=== PATIENT | female | born 1975 | race Caucasian/White ===

== ENCOUNTER 2017-06-08 16:13 | Emergency (ER) | payer OTHER ==
[2017-06-08] MEDS ORDERED: ASPIRIN 81 MG TABLET, CHEWABLE PO ONE (17:05)
[2017-06-08] MEDS: NITROGLYCERIN 0.4 MG/TAB 25 TAB/BOTTLE SL PRN ×2 (17:20→17:27)
--- NOTE | 2017-06-08 17:26 | ER Document Report ---
ED Medical Screen (RME) - General TRAVEL OUTSIDE OF THE [place] IN LAST 30 DAYS: No <ODESSACAMILOANDREA - Last Filed: 06/08/17 17:06> <LYLAIRAGEOVANNY RAPHAEL - Last Filed: 06/08/17 18:24> - General Chief Complaint: Chest Pain Stated Complaint: CHEST PAIN Time Seen by Provider: 06/08/17 17:00 Notes: Patient is a 41 year old female presenting to the emergency department for chest pain, arm tingling, neck and jaw pain, and nausea. Patient states her pain started in her chest and then radiated into her left arm, neck and jaw. Patient states she also has a frontal headache. Patient states it hurts to lay down and she feels like she is breathing heavy when she lays down. Patient states it feels better to lean forward. Patient complains of nausea and cold sweats. Patient denies any vomiting or diarrhea. Patient states that she had a previous MD when she was 8 years old which occurred during a surgery; patient states this occurred due to an overdose of medication. 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 Patient's last checkup was October 29, 2016. Patient had a thyroidectomy in July. Patient is a former smoker. ( ANDREA PAZ) - Related Data Allergies/Adverse Reactions: adhesive tape [Adhesive Tape] Allergy (Severe, Verified 06/08/17 16:29) latex [Latex] Allergy (Verified 06/08/17 16:29) Anaphylaxis Penicillins Allergy (Verified 06/08/17 16:29) Anaphylaxis Past Medical History - Social History Chew tobacco use (# tins/day): No Frequency of alcohol use: Rare Drug Abuse: None - Past Medical History Cardiac Medical History: Reports: Hx Heart Attack Denies: Hx Coronary Artery Disease, Hx Hypertension Pulmonary Medical History: Reports: Hx Asthma - seasonal, Hx Pneumonia - Not hospitalized Denies: Hx Bronchitis, Hx COPD, Hx Tuberculosis Neurological Medical History: Denies: Hx Cerebrovascular Accident, Hx Seizures Endocrine Medical History: Reports: Hx Hypothyroidism - hashimotos Renal/ Medical History: Reports: Hx Kidney Stones - polycystic kidney. Denies : Hx Peritoneal Dialysis Musculoskeltal Medical History: Reports Hx Arthritis - RA Past Surgical History: Reports: Hx Hysterectomy, Hx Thyroid Surgery. Denies: Hx Pacemaker - Immunizations Hx Diphtheria, Pertussis, Tetanus Vaccination: Yes - 2013 History of Influenza Vaccine for 05/2017 - 10/2017 Season: No <ANDREA PAZ - Last Filed: 06/08/17 17:06> Physical Exam <ANDREA PAZ - Last Filed: 06/08/17 17:06> <GEOVANNY PANG - Last Filed: 06/08/17 18:24> - Vital signs Vitals: Temp Pulse Resp BP Pulse Ox 99.0 F 109 H 20 126/86 H 96 06/08/17 16:30 06/08/17 16:30 06/08/17 16:30 06/08/17 16:30 06/08/17 16:30 - Notes Notes: GENERAL: Alert, interacts well. No acute distress. LUNGS: Clear to auscultation bilaterally, no wheezes, rales, or rhonchi. No respiratory distress. Reproducible tenderness to palpation over the anterior chest wall. HEART: Regular rate and rhythm. No murmurs, gallops, or rubs. ABDOMEN: Soft, non-tender. Non-distended. Bowel sounds present in all 4 quadrants. (ANDREA PAZ) Course - Laboratory Result Diagrams: 06/08/17 17:15 06/08/17 17:15 <GEOVANNY APNG - Last Filed: 06/08/17 18:24> - Vital Signs Vital signs: Temp Pulse Resp BP Pulse Ox 99.0 F 109 H 20 126/86 H 96 06/08/17 16:30 06/08/17 16:30 06/08/17 16:30 06/08/17 16:30 06/08/17 16:30 - Laboratory Laboratory results interpreted by me: 06/08/17 06/08/17 17:15 17:15 WBC 10.7 H RDW 14.1 H Carbon Dioxide 32 H Calcium 10.5 H Scribe Documentation - Scribe Written by Scroswaldoe:: Tonny Baeza, 06/08/2017 [id number] acting as scribe for :: Bogdan <ANDREA PAZ - Last Filed: 06/08/17 17:06>
[2017-06-08 17:36] LABS: ABSOLUTE BASOPHILS # (AUTO) 0.1 10^3/uL (0.0-0.2); ABSOLUTE EOSINOPHILS # (AUTO) 0.5 10^3/uL (0.0-0.6); ABSOLUTE LYMPHOCYTES (AUTO) 2.3 10^3/uL (0.5-4.7); ABSOLUTE NEUT (AUTO) 6.8 10^3/uL (1.7-8.2); BASOPHILS % (AUTO) 0.7 % (0-2); EOSINOPHILS % (AUTO) 4.6 % (0-6); HEMATOCRIT 43.7 % (36.0-47.0); HGB HCT DIFFERENCE 1.3; LYMPHOCYTES % (AUTO) 21.9 % (13-45); MEAN CORPUSCULAR HEMOGLOBIN 29.3 pg (27.0-33.4); MEAN CORPUSCULAR HGB CONC 34.3 g/dL (32.0-36.0); MEAN CORPUSCULAR VOLUME 86 fl (80-97); MONOCYTES % (AUTO) 9.1 % (3-13); RED CELL DISTRIBUTION WIDTH 14.1 % (11.5-14.0); SEGMENTED NEUTROPHILS % (AUTO) 63.7 % (42-78); WHITE BLOOD COUNT 10.7 10^3/uL (4.0-10.5)
[2017-06-08 17:54] LABS: ALANINE AMINOTRANSFERASE 51 U/L (9-52); ALBUMIN 4.6 g/dL (3.5-5.0); ALKALINE PHOSPHATASE 91 U/L (38-126); ANION GAP 12 (5-19); ASPARTATE AMINO TRANSFERASE 32 U/L (14-36); BILIRUBIN,DIRECT 0.4 mg/dL (0.0-0.4); BILIRUBIN,TOTAL 0.5 mg/dL (0.2-1.3); BLOOD UREA NITROGEN 13 mg/dL (7-20); CALCIUM 10.5 mg/dL (8.4-10.2); CARBON DIOXIDE 32 mmol/L (22-30); CHLORIDE 98 mmol/L (98-107); CREATINE KINASE 93 U/L (30-135); CREATININE RESULT 0.83 mg/dL (0.52-1.25); GLUCOSE 89 mg/dL (75-110); POTASSIUM 3.9 mmol/L (3.6-5.0); SODIUM 142.1 mmol/L (137-145); TOTAL PROTEIN 7.8 g/dL (6.3-8.2)
--- NOTE | 2017-06-08 17:55 | RADIOLOGY REPORT (SQ) ---
EXAM DESCRIPTION: CHEST SINGLE VIEW COMPLETED DATE/TIME: 06/08/2017 5:47 pm REASON FOR STUDY: pleuritic CP, worse also with movement COMPARISON: 01/15/2014 EXAM PARAMETERS: NUMBER OF VIEWS: One view. TECHNIQUE: Single frontal radiographic view of the chest acquired. RADIATION DOSE: NA LIMITATIONS: None. FINDINGS: LUNGS AND PLEURA: No opacities, masses or pneumothorax. No pleural effusion. MEDIASTINUM AND HILAR STRUCTURES: No masses. Contour normal. HEART AND VASCULAR STRUCTURES: Heart normal in size. Normal vasculature. BONES: No acute findings. HARDWARE: None in the chest. OTHER: No other significant finding. IMPRESSION: NO ACUTE RADIOGRAPHIC FINDING IN THE CHEST. TECHNICAL DOCUMENTATION: JOB ID: [id number]
[2017-06-08 18:09] LABS: TROPONIN I < 0.012 ng/mL
[2017-06-08] MEDS ORDERED: KETOROLAC TROMETHAMINE INJ/PF 30 MG/1 ML SDV IV ONE (18:38)
[2017-06-08] MEDS ORDERED: PROCHLORPERAZINE EDISYLATE INJ 10 MG/2 ML VIAL IV ONE (18:38)
--- NOTE | 2017-06-08 19:29 | ER Document Report ---
ED General - General Chief Complaint: Chest Pain Stated Complaint: CHEST PAIN Time Seen by Provider: 06/08/17 17:00 Notes: Patient is a 41-year-old female with a past medical history of a recent thyroidectomy, a myocardial infarction is a 8-year-old secondary to an operative medication administration but no known history of coronary artery disease who presents with a aching right-sided chest pressure that started at approximately 1:30 PM today. Since that time the pain has been constant. Denies any radiation to the arms, jaw or back. Denies any associated vomiting, diaphoresis or shortness of breath. She notes shortly after the onset of the pain she did develop a mild headache. Describes this as similar to prior tension headaches that she has had. The headache was gradual in onset and got progressively worse after starting. She denies any associated weakness, numbness, altered mental status. Denies any history of similar symptoms in the past. She has no other cardiac history. No history of DVT or pulmonary embolus. She does have a history of sinus tachycardia at baseline with a resting heart rate between 110-115. TRAVEL OUTSIDE OF THE [place] IN LAST 30 DAYS: No - Related Data Allergies/Adverse Reactions: adhesive tape [Adhesive Tape] Allergy (Severe, Verified 06/08/17 16:29) latex [Latex] Allergy (Verified 06/08/17 16:29) Anaphylaxis Penicillins Allergy (Verified 06/08/17 16:29) Anaphylaxis Past Medical History - General Information source: Patient - Social History Smoking Status: Former Smoker Chew tobacco use (# tins/day): No Frequency of alcohol use: Rare Drug Abuse: None Lives with: Spouse/Significant other Family History: CAD - father and mother, DM - mother, Hyperlipidemia, Hypertension - Past Medical History Cardiac Medical History: Reports: Hx Heart Attack Denies: Hx Coronary Artery Disease, Hx Hypertension Pulmonary Medical History: Reports: Hx Asthma - seasonal, Hx Pneumonia - Not hospitalized Denies: Hx Bronchitis, Hx COPD, Hx Tuberculosis Neurological Medical History: Denies: Hx Cerebrovascular Accident, Hx Seizures Endocrine Medical History: Reports: Hx Hypothyroidism - hashimotos Renal/ Medical History: Reports: Hx Kidney Stones - polycystic kidney. Denies : Hx Peritoneal Dialysis Musculoskeltal Medical History: Reports Hx Arthritis - RA Past Surgical History: Reports: Hx Hysterectomy, Hx Thyroid Surgery. Denies: Hx Pacemaker - Immunizations Hx Diphtheria, Pertussis, Tetanus Vaccination: Yes - 2013 Hx Pneumococcal Vaccination: 06/19/11 Review of Systems - Review of Systems Notes: Constitutional: Negative for fever. HENT: Negative for sore throat. Eyes: Negative for visual changes. Cardiovascular: Positive for chest pain. Respiratory: Negative for shortness of breath. Gastrointestinal: Negative for abdominal pain, vomiting or diarrhea. Genitourinary: Negative for dysuria. Musculoskeletal: Negative for back pain. Skin: Negative for rash. Neurological: Positive for headache 10 point ROS negative except as marked above and in HPI. Physical Exam - Vital signs Vitals: Temp Pulse Resp BP Pulse Ox 99.0 F 109 H 20 126/86 H 96 06/08/17 16:30 06/08/17 16:30 06/08/17 16:30 06/08/17 16:30 06/08/17 16:30 Interpretation: Tachycardic Notes: PHYSICAL EXAMINATION: GENERAL: Well-appearing, well-nourished and in no acute distress. HEAD: Atraumatic, normocephalic. EYES: Pupils equal round and reactive to light, extraocular movements intact, sclera anicteric, conjunctiva are normal. ENT: nares patent, oropharynx clear without exudates. Moist mucous membranes. NECK: Normal range of motion, supple without lymphadenopathy LUNGS: Breath sounds clear to auscultation bilaterally and equal. No wheezes rales or rhonchi. HEART: Regular tachycardia without murmurs ABDOMEN: Soft, nontender, normoactive bowel sounds. No guarding, no rebound. No masses appreciated. EXTREMITIES: Normal range of motion, no pitting or edema. No cyanosis. NEUROLOGICAL: No focal neurological deficits. Moves all extremities spontaneously and on command. PSYCH: Normal mood, normal affect. SKIN: Warm, Dry, normal turgor, no rashes or lesions noted. Course - Re-evaluation Re-evalutation: 06/08/17 19:29 Presentation of chest pain in an otherwise well appearing patient. Low clinical suspicion for ACS given clinical history, exam, EKG without ST elevations or depressions, and negative initial troponin. HEART score less than or equal to 3. PE also seems unlikely given clinical history, absence of any complaint of shortness of breath. Patient was mildly tachycardic at time of presentation although she does have a history of baseline tachycardia based on prior visits. CXR without evidence of pneumothorax or pneumonia. No widened mediastinum. Aortic dissection also seems unlikely given history, symmetric pulses, CXR, and vitals. I do not suspect a carotid artery dissection or subarachnoid hemorrhage as etiology of her chest pain with associated mild headache. Her headache itself appears to be likely a tension headache being over the bifrontal areas, mild in nature gradual in onset and progressively worse since that time. I do not believe any acute imaging of the head is indicated. HEART Score: History:0 EC Age:0 Risk Factors:0 Troponin:0 Total: 0 06/08/17 21:28 Second troponin remains normal. Patient remains without any chest pain. Chest pain in a patient without evidence of cardiac or other serious etiology on workup today. I discussed with patient that, based on their age, risk factors and emergency department testing today, the likelihood that their symptoms are related to a heart attack is very low (estimated risk of heart attack or over the next 30 days of less than 1%). The patient demonstrates decision making capacity and has verbalized an understanding of these risks to me. Based on this, the patient has chosen to follow-up as an outpatient. Usual chest pain return precautions reviewed. The patient states understanding and agreement with this plan. - Vital Signs Vital signs: Temp Pulse Resp BP Pulse Ox 99.0 F 109 H 20 102/75 95 06/08/17 16:30 06/08/17 16:30 06/08/17 21:39 06/08/17 21:39 06/08/17 21:39 - Laboratory Result Diagrams: 06/08/17 17:15 06/08/17 17:15 Laboratory results interpreted by me: 06/08/17 06/08/17 17:15 17:15 WBC 10.7 H RDW 14.1 H Carbon Dioxide 32 H Calcium 10.5 H - Diagnostic Test Radiology reviewed: Image reviewed, Reports reviewed Radiology results interpreted by me: 06/08/17 21:30 Chest x-ray: No acute infiltrate or pneumothorax - EKG Interpretation by Me Additional EKG results interpreted by me: 06/08/17 21:39 Sinus tachycardia. Rate 105. No ST elevations or depressions. QTC is 450. Discharge - Discharge Clinical Impression: Chest pain Qualifiers: Chest pain type: unspecified Qualified Code(s): R07.9 - Chest pain, unspecified Headache Qualifiers: Headache type: unspecified Headache chronicity pattern: acute headache Intractability: not intractable Qualified Code(s): R51 - Headache Condition: Good Disposition: HOME, SELF-CARE Additional Instructions: You were seen today for chest pain. The exact cause of your pain is unclear. However, based on your cardiac enzyme testing, chest x-ray, and EKG it does not appear that it is from an immediately life-threatening cause at this time. Although your testing here is normal is critical that you follow-up with your primary care physician for continued evaluation of this chest pain and possible stress testing. I recommended you see your physician within the next 24-48 hours to be evaluated for consideration of a stress test. Please return to emergency department immediately if you have worsening of your chest pain, shortness of breath, vomiting, become unable to exert yourself due to pain or difficulty breathing, you pass out, or have any pain that radiates into your arms, jaw, or back. Please also return if you have any additional symptoms that are concerning to you.
[2017-06-08] MEDS ORDERED: NORMAL SALINE 1000 ML 1,000 ML IV ONE (19:31)
[2017-06-08] MEDS ORDERED: MORPHINE SULFATE 10 MG/ML INJ IV PRN (19:32)
[2017-06-08 22:05] VITALS: BP 102/75
--- NOTE | 2017-06-09 09:20 | EKG REPORT ---
SEVERITY:- OTHERWISE NORMAL ECG - SINUS TACHYCARDIA : Confirmed by: Kaitlyn Hanson MD 09-Jun-2017 09:19:19
== END 2017-06-08 22:06 | disposition home or self-care (01) ==
LOC: ER 16:13
DX: R07.9 Chest pain, unspecified (principal); R51 Headache; I25.2 Old myocardial infarction; Z87.891 Personal history of nicotine dependence
CPT/HCPCS: 93005; 99285; 96361; 96374; 96375; 36415; 82553; 82550; 85025; 80053; 84484; 71010; 93010; J1885; J0780; J7030

== ENCOUNTER 2018-05-24 22:28 | Emergency (ER) | payer OTHER ==
[2018-05-24] MEDS ORDERED: RINGERS SOLUTION,LACTATED 1,000 ML IV ONE (23:01)
[2018-05-24 23:38] LABS: ABSOLUTE BASOPHILS # (AUTO) 0.1 10^3/uL (0.0-0.2); ABSOLUTE EOSINOPHILS # (AUTO) 0.3 10^3/uL (0.0-0.6); ABSOLUTE LYMPHOCYTES (AUTO) 2.5 10^3/uL (0.5-4.7); ABSOLUTE MONOCYTES (AUTO) 1.2 10^3/uL (0.1-1.4); ABSOLUTE NEUT (AUTO) 11.7 10^3/uL (1.7-8.2); BASOPHILS % (AUTO) 0.3 % (0-2); EOSINOPHILS % (AUTO) 1.6 % (0-6); HEMATOCRIT 47.8 % (36.0-47.0); LYMPHOCYTES % (AUTO) 15.9 % (13-45); MEAN CORPUSCULAR HEMOGLOBIN 28.2 pg (27.0-33.4); MEAN CORPUSCULAR HGB CONC 33.4 g/dL (32.0-36.0); MEAN CORPUSCULAR VOLUME 85 fl (80-97); MONOCYTES % (AUTO) 7.4 % (3-13); PLATELET COUNT 414 10^3/uL (150-450); RED BLOOD COUNT 5.66 10^6/uL (3.72-5.28); RED CELL DISTRIBUTION WIDTH 14.1 % (11.5-14.0); SEGMENTED NEUTROPHILS % (AUTO) 74.8 % (42-78); TOTAL CELLS COUNTED % (AUTO) 100 %; WHITE BLOOD COUNT 15.6 10^3/uL (4.0-10.5)
--- NOTE | 2018-05-24 23:44 | ER Document Report ---
ED General - General Chief Complaint: Headache Stated Complaint: WEAKNESS Time Seen by Provider: 05/24/18 22:45 Notes: Patient is a 42-year-old female with a past medical history of baseline tachycardia, hypocalcemia, hypothyroidism status post thyroidectomy, who presents after having a possible seizure. The patient was apparently using the restroom, her could hear a repetitious knocking sound the bathroom door. He could not get in as the patient was apparently slumped against the door. This lasted for approximately 1 minute. The patient apparently was fully quite confused and altered for several minutes thereafter before returning to her baseline. The patient has had one prior seizure in the past in 2013 with a negative workup thereafter. She does not take any form of antiepileptics. She presents as she is quite concerned that her symptoms could be related to hypocalcemia. She recently was treated with ceftriaxone for a pyelonephritis but states that she no longer has any of those symptoms and does not feel that that is involved in her presentation today. She notes that her primary care doctor did labs 2 days ago that confirmed that the urinary tract has cleared. She denies fever or constitutional symptoms. Her main current complaint is of some mild, throbbing, global headache that is not improved or worsened by anything. Similar to headaches she has had in the past. She denies any focal weakness, numbness or confusion. She does admit to some lightheadedness and feeling dehydrated. TRAVEL OUTSIDE OF THE [place] IN LAST 30 DAYS: No - Related Data Allergies/Adverse Reactions: adhesive tape [Adhesive Tape] Allergy (Severe, Verified 06/08/17 16:29) latex [Latex] Allergy (Verified 06/08/17 16:29) Anaphylaxis Penicillins Allergy (Verified 06/08/17 16:29) Anaphylaxis Past Medical History - General Information source: Patient - Social History Smoking Status: Never Smoker Frequency of alcohol use: None Drug Abuse: None Lives with: Spouse/Significant other Family History: CAD - father and mother, DM - mother, Hyperlipidemia, Hypertension - Past Medical History Cardiac Medical History: Reports: Hx Heart Attack Denies: Hx Coronary Artery Disease, Hx Hypertension Pulmonary Medical History: Reports: Hx Asthma - seasonal, Hx Pneumonia - Not hospitalized Denies: Hx Bronchitis, Hx COPD, Hx Tuberculosis Neurological Medical History: Denies: Hx Cerebrovascular Accident, Hx Seizures Endocrine Medical History: Reports: Hx Hypothyroidism - hashimotos Renal/ Medical History: Reports: Hx Kidney Stones - polycystic kidney. Denies : Hx Peritoneal Dialysis Musculoskeletal Medical History: Reports Hx Arthritis - RA Past Surgical History: Reports: Hx Hysterectomy, Hx Thyroid Surgery. Denies: Hx Pacemaker - Immunizations Hx Diphtheria, Pertussis, Tetanus Vaccination: Yes - 2013 Hx Pneumococcal Vaccination: 06/19/11 Review of Systems - Review of Systems Notes: Constitutional: Negative for fever. HENT: Negative for sore throat. Eyes: Negative for visual changes. Cardiovascular: Negative for chest pain. Respiratory: Negative for shortness of breath. Gastrointestinal: Negative for abdominal pain, vomiting or diarrhea. Genitourinary: Negative for dysuria. Musculoskeletal: Negative for back pain. Skin: Negative for rash. Neurological: Positive for seizure, headache 10 point ROS negative except as marked above and in HPI. Physical Exam - Vital signs Vitals: Temp Pulse Resp BP Pulse Ox 98.7 F 129 H 12 81/32 L 95 05/24/18 22:35 05/24/18 22:35 05/24/18 22:35 05/24/18 22:35 05/24/18 22:35 Interpretation: Hypotensive, Tachycardic Notes: PHYSICAL EXAMINATION: GENERAL: Well-appearing, well-nourished and in no acute distress. HEAD: Atraumatic, normocephalic. EYES: Pupils equal round and reactive to light, extraocular movements intact, sclera anicteric, conjunctiva are normal. ENT: nares patent, oropharynx clear without exudates. Dry mucous membranes. NECK: Normal range of motion, supple without lymphadenopathy LUNGS: Breath sounds clear to auscultation bilaterally and equal. No wheezes rales or rhonchi. HEART: Regular tachycardia without murmurs ABDOMEN: Soft, nontender, normoactive bowel sounds. No guarding, no rebound. No masses appreciated. EXTREMITIES: Normal range of motion, no pitting or edema. No cyanosis. NEUROLOGICAL: Face symmetric. Tongue protrudes midline. Extraocular motions intact. Pupils are 2 mm and equally reactive. Normal speech, normal gait. 5 out of 5 strength in both the distal and proximal upper and lower extremities bilaterally. Sensation is grossly intact throughout. Finger to nose testing normal. Pronator drift normal. PSYCH: Normal mood, normal affect. SKIN: Warm, Dry, normal turgor, no rashes or lesions noted. Course - Re-evaluation Re-evalutation: 05/24/18 23:45 Patient presents complaining of a possible seizure at home. Patient apparently generalized tonic-clonic activity followed by a several minute postictal phase. Patient has had one seizure in the remote past specifically in 2013 with a negative workup thereafter does not take antiepileptics. Patient is tachycardic at time of presentation was very clear to state that her normal heart rate is between 117 and 130 at baseline and that there is nothing new or different about this today. She has no focal neurologic deficits on examination. 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 Will obtain ionized calcium, labs, provide IV fluids, obtain a CT given questionable seizure and reassess 05/25/18 01:50 Patient is awake, alert, repeat neuro exam unremarkable. Labs show mild prerenal azotemia, consistent with dehydration. Nonspecific leukocytosis likely associated to the recent seizure. No significant hypocalcemia. Patient' s blood pressure has improved currently 102 on 65. She reports that her normal blood pressure typically runs around this range. She has tolerated oral intake without difficulty. I have emphasized the need for close outpatient neurology follow-up as well as primary care follow-up. At this time will discharge with return precautions and follow-up recommendations. Verbal discharge instructions given a the bedside and opportunity for questions given. Medication warnings reviewed. Patient is in agreement with this plan and has verbalized understanding of return precautions and the need for primary care follow-up in the next 24-72 hours. - Vital Signs Vital signs: Temp Pulse Resp BP Pulse Ox 98.3 F 129 H 28 H 102/65 96 05/25/18 01:16 05/24/18 22:35 05/25/18 01:46 05/25/18 01:46 05/25/18 01:46 - Laboratory Result Diagrams: 05/24/18 23:20 05/24/18 23:20 Laboratory results interpreted by me: 05/24/18 05/24/18 05/24/18 23:20 23:20 23:20 WBC 15.6 H RBC 5.66 H Hgb 16.0 H Hct 47.8 H RDW 14.1 H Absolute Neutrophils 11.7 H Chloride 97 L BUN 21 H Creatinine 1.65 H Est GFR ( Amer) 41 L Est GFR (Non-Af Amer) 34 L Glucose 126 H Ionized Calcium Aubrey 1.13 L AST 39 H ALT 54 H Total Protein 8.4 H - Diagnostic Test Radiology reviewed: Image reviewed, Reports reviewed Radiology results interpreted by me: 05/25/18 01:51 CT head: No acute intracranial bleed or mass - EKG Interpretation by Me Additional EKG results interpreted by me: 05/25/18 01:52 Sinus tachycardia. Rate 110. No ST elevations or depressions. QTC is 477. Discharge - Discharge Clinical Impression: Seizure, Acute kidney injury, Dehydration Condition: Good Disposition: HOME, SELF-CARE Additional Instructions: Today you had a seizure. It is very important that you do not engage in any activities that could result in severe injury should you have a seizure. Specifically, do not drive a vehicle, go into a body of water, take a bath, climb ladders, or operate any heavy machinery until you have been cleared by your neurologist. Please return to the ED immediately if you have multiple seizures close together, develop a severe headache, weakness, numbness, difficulty speaking, have a seizure in which you do not return to normal within 1 hour of the seizure, or have any other symptoms that are concerning to you. Please do follow-up closely regarding your kidney functions as well which appear to be likely related to dehydration. Your kidney function should be rechecked within the next 1-2 days to ensure that they have normalized after receiving IV fluids here in the emergency department. Referrals: GISELLA MEADE FNP [Primary Care Provider] - Follow up as needed
[2018-05-24 23:59] LABS: ALANINE AMINOTRANSFERASE 54 U/L (9-52); ALBUMIN 4.7 g/dL (3.5-5.0); ALKALINE PHOSPHATASE 93 U/L (38-126); ANION GAP 16 (5-19); ASPARTATE AMINO TRANSFERASE 39 U/L (14-36); BILIRUBIN,DIRECT 0.4 mg/dL (0.0-0.4); BILIRUBIN,TOTAL 0.5 mg/dL (0.2-1.3); BLOOD UREA NITROGEN 21 mg/dL (7-20); CALCIUM 9.8 mg/dL (8.4-10.2); CARBON DIOXIDE 28 mmol/L (22-30); CHLORIDE 97 mmol/L (98-107); GLUCOSE 126 mg/dL (75-110); POTASSIUM 4.5 mmol/L (3.6-5.0); SODIUM 140.8 mmol/L (137-145); TOTAL PROTEIN 8.4 g/dL (6.3-8.2)
--- NOTE | 2018-05-25 00:50 | RADIOLOGY REPORT (SQ) ---
EXAM DESCRIPTION: CT HEAD WITHOUT IV CONTRAST COMPLETED DATE/TME: 05/24/2018 23:44 CLINICAL HISTORY: possible seizure COMPARISON: 12/19/2013 TECHNIQUE: Axial CT of the head obtained from the skull apex to the skull base without contrast. FINDINGS: No acute intracranial hemorrhage identified. No mass, mass effect, shift of the midline, abnormal extra-axial fluid collection or CT evidence of acute ischemic change identified. The ventricular system is unremarkable. No acute abnormalities of the supratentorial white matter, basal ganglia, cerebellum, or brainstem. The visualized paranasal sinuses and the mastoids are clear. No skull fracture identified. Visualized orbits and globes are unremarkable. DLP: 137.36 mGy-cm IMPRESSION: 1. No acute intracranial abnormality identified. This exam was performed according to our departmental dose-optimization program, which includes automated exposure control, adjustment of the mA and/or kV according to patient size and/or use of iterative reconstruction technique.
[2018-05-25 01:50] VITALS: BP 102/65
--- NOTE | 2018-05-25 18:53 | EKG REPORT ---
SEVERITY:- OTHERWISE NORMAL ECG - SINUS TACHYCARDIA : Confirmed by: Christiano Mtz 25-May-2018 18:51:53
== END 2018-05-25 02:16 | disposition home or self-care (01) ==
LOC: ER 22:28
DX: R56.9 Unspecified convulsions (principal); N17.9 Acute kidney failure, unspecified; E86.0 Dehydration; R51 Headache; R53.1 Weakness; R00.0 Tachycardia, unspecified; E83.51 Hypocalcemia; E89.0 Postprocedural hypothyroidism; Z79.899 Other long term (current) drug therapy; J45.909 Unspecified asthma, uncomplicated
CPT/HCPCS: 93005; 99284; 96360; 36415; 85025; 80053; 82330; 70450; 93010; J7120

== ENCOUNTER 2018-12-04 00:05 | Emergency (ER) | payer OTHER ==
[2018-12-04] MEDS ORDERED: KETOROLAC TROMETHAMINE INJ/PF 30 MG/1 ML SDV IV STA (00:28)
[2018-12-04] MEDS ORDERED: OXYCODONE-ACETAMINOPHEN 5-325 MG TABLET PO ONE (00:28)
--- NOTE | 2018-12-04 00:36 | ER Document Report ---
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 I believe she will miss work for doctors first. Primary reason for her being here today is that this morning while on her shift she had sudden onset of left-sided abdominal discomfort and they checked a urine and it was clean. She has an patient attendant friend that did a quick outside ultrasound did not see anything major although she felt that there might be some inflammation in the area but patient did not want to stay to have a full workup so she took a oral 10 mg Toradol got on the plane contacted her primary care provider prior to that and the primary of told her that if pain get worse actually come to ER or other than that she would set up an appointment for Saturday and gave her a time. Patient has had increasing pain in the left side she tells me that she has had a colonoscopy and that she does not have any diverticulosis so she does not believe this is a diverticulitis event. She does state that she is afraid that his is an ovarian torsion with as much pain it that she is currently in. Patient has had nausea but no vomiting and some diarrhea. She has had a long medical history to include hypocalcemia, hypo- Opana, Graves' disease Leonard's disease and multitude of others I was unable to get at this time. TRAVEL OUTSIDE OF THE U.S. IN LAST 30 DAYS: No - HPI Onset: This morning Onset/Duration: Sudden, Waxing and waning, Worse Quality of pain: Sharp, Stabbing Severity: Severe Pain Level: 5 Associated Symptoms: denies: Dysuria Exacerbated by: Movement, Walking Relieved by: Denies Similar symptoms previously: Yes Recently seen / treated by doctor: Yes - Related Data Smoking: Non-smoker Frequency of alcohol use: Rare Drug Abuse: None Allergies/Adverse Reactions: adhesive tape [Adhesive Tape] Allergy (Severe, Verified 06/08/17 16:29) latex [Latex] Allergy (Verified 06/08/17 16:29) Anaphylaxis Penicillins Allergy (Verified 06/08/17 16:29) Anaphylaxis cephalexin [From Keflex] Adverse Reaction (Verified 12/04/18 00:12) morphine Adverse Reaction (Verified 12/04/18 00:12) Past Medical History - General Information source: Patient - Social History Cigarette use (# per day): No Chew tobacco use (# tins/day): No Frequency of alcohol use: None Drug Abuse: None Lives with: Spouse/Significant other Family history: Reviewed & Not Pertinent - Past Medical History Cardiac Medical History: Reports: Hx Heart Attack Denies: Hx Coronary Artery Disease, Hx Hypertension Pulmonary Medical History: Reports: Hx Asthma - seasonal, Hx Pneumonia - Not hospitalized Denies: Hx Bronchitis, Hx COPD, Hx Tuberculosis Neurological Medical History: Denies: Hx Cerebrovascular Accident, Hx Seizures Endocrine Medical History: Reports: Hx Hypothyroidism - hashimotos Renal/ Medical History: Reports: Hx Kidney Stones - polycystic kidney. Denies: Hx Peritoneal Dialysis Musculoskeltal Medical History: Reports Hx Arthritis - RA Past Surgical History: Reports: Hx Hysterectomy, Hx Thyroid Surgery. Denies: Hx Pacemaker - Immunizations Hx Diphtheria, Pertussis, Tetanus Vaccination: Yes - 2013 History of Influenza Vaccine for 05/2017 - 10/2017 Season: No Review of Systems - Review of Systems Constitutional: No symptoms reported EENT: No symptoms reported Cardiovascular: No symptoms reported Respiratory: No symptoms reported Gastrointestinal: No symptoms reported Genitourinary: No symptoms reported, Other - Severe left lower quadrant pain and mostly pelvic area Female Genitourinary: No symptoms reported Musculoskeletal: No symptoms reported Skin: No symptoms reported Hematologic/Lymphatic: No symptoms reported Neurological/Psychological: No symptoms reported -: Yes All other systems reviewed and negative Physical Exam - Vital signs Vitals: Temp Pulse Resp BP Pulse Ox 98.2 F 133 H 19 130/78 H 98 12/04/18 00:11 12/04/18 00:11 12/04/18 00:11 12/04/18 00:11 12/04/18 00:11 Interpretation: Hypertensive, Tachypneic - Notes Notes: PHYSICAL EXAMINATION: GENERAL: Patient is well-nourished well-developed in obvious pain at this point time on physical exam today. HEAD: Atraumatic, normocephalic. LUNGS: Breath sounds clear to auscultation bilaterally and equal. No wheezes rales or rhonchi. HEART: Tachycardic rate and rhythm without murmurs ABDOMEN: Severe abdominal pain to left lower quadrant Female : deferred SKIN: Warm, Dry, normal turgor, no rashes or lesions noted. Course - Re-evaluation Re-evalutation: 12/04/18 00:36 I have greeted and performed a rapid initial assessment of this patient. A comprehensive ED assessment and evaluation of the patient, analysis of test results and completion of the medical decision making process will be conducted by additional ED providers. Dictation of this chart was performed using voice recognition software; therefore, there may be some unintended grammatical errors. - Vital Signs Vital signs: Temp Pulse Resp BP Pulse Ox 98.2 F 133 H 19 130/78 H 98 12/04/18 00:11 12/04/18 00:11 12/04/18 00:11 12/04/18 00:11 12/04/18 00:11 Doctor's Discharge - Discharge Referrals: GISELLA MEADE FNP [Primary Care Provider] - Follow up as needed
[2018-12-04] MEDS ORDERED: HYDROMORPHONE HCL INJ/PF 2 MG/ML AMPULE IV ONE ×2 (01:15→03:41)
[2018-12-04] MEDS ORDERED: ONDANSETRON HCL INJ/PF 4 MG/2 ML SDV IV ONE (01:15)
[2018-12-04] MEDS ORDERED: DIPHENHYDRAMINE HCL 50 MG/ML VIAL IV ONE (01:15)
[2018-12-04 01:24] LABS: APPEARANCE,URINE SLIGHTLY-CLOUDY; BILIRUBIN,URINE NEGATIVE (NEGATIVE); COLOR,URINE YELLOW; GLUCOSE, URINE NEGATIVE (NEGATIVE); KETONES,URINE NEGATIVE (NEGATIVE); LEUKOCYTE ESTERASE,URINE SMALL (NEGATIVE); NITRITE,URINE NEGATIVE (NEGATIVE); PROTEIN,URINE NEGATIVE (NEGATIVE); URINE SPECIFIC GRAVITY 1.024; UROBILINOGEN,URINE NEGATIVE mg/dL (<2.0)
--- NOTE | 2018-12-04 01:26 | ER Document Report ---
ED General - General Chief Complaint: Abdominal Pain Stated Complaint: ABDOMINAL PAIN Time Seen by Provider: 12/04/18 00:26 Primary Care Provider: GISELLA MEADE FNP [Primary Care Provider] - Follow up as needed Mode of Arrival: Ambulatory Information source: Patient, [facility] Records Notes: 43-year-old female presents with acute onset of left lower quadrant abdominal pain that started approximately 12 hours prior to arrival. Patient describes the pain as constant, stabbing and associated with nausea and fever. Patient has a history of partial hysterectomy. She reports a fever of 103 today for which she has been taking Tylenol. Patient also has had flaquito colored stools and diarrhea. TRAVEL OUTSIDE OF THE U[place] IN LAST 30 DAYS: No - HPI Onset: This morning Onset/Duration: Sudden Quality of pain: Stabbing Severity: Severe Pain Level: 4 Associated symptoms: Fever, Nausea, Vomiting, Other - Abdominal pain Exacerbated by: Denies Relieved by: Denies Similar symptoms previously: No Recently seen / treated by doctor: No - Related Data Allergies/Adverse Reactions: adhesive tape [Adhesive Tape] Allergy (Severe, Verified 06/08/17 16:29) latex [Latex] Allergy (Verified 06/08/17 16:29) Anaphylaxis Penicillins Allergy (Verified 06/08/17 16:29) Anaphylaxis cephalexin [From Keflex] Adverse Reaction (Verified 12/04/18 00:12) morphine Adverse Reaction (Verified 12/04/18 00:12) Past Medical History - General Information source: Patient - Social History Smoking Status: Never Smoker Cigarette use (# per day): No Chew tobacco use (# tins/day): No Frequency of alcohol use: None Drug Abuse: None Lives with: Spouse/Significant other Family History: CAD - father and mother, DM - mother, Hyperlipidemia, Hypertension - Past Medical History Cardiac Medical History: Reports: Hx Heart Attack Denies: Hx Coronary Artery Disease, Hx Hypertension Pulmonary Medical History: Reports: Hx Asthma - seasonal, Hx Pneumonia - Not hospitalized Denies: Hx Bronchitis, Hx COPD, Hx Tuberculosis Neurological Medical History: Denies: Hx Cerebrovascular Accident, Hx Seizures Endocrine Medical History: Reports: Hx Hypothyroidism - hashimotos Renal/ Medical History: Reports: Hx Kidney Stones - polycystic kidney. Denies: Hx Peritoneal Dialysis Musculoskeletal Medical History: Reports Hx Arthritis - RA Past Surgical History: Reports: Hx Hysterectomy, Hx Thyroid Surgery. Denies: Hx Pacemaker - Immunizations Hx Diphtheria, Pertussis, Tetanus Vaccination: Yes - 2013 Hx Pneumococcal Vaccination: 06/19/11 Review of Systems - Review of Systems Notes: REVIEW OF SYSTEMS: CONSTITUTIONAL : Denies chills, or sweats. Denies recent illness. Denies weight loss, recent hospitalizations. EENT: Denies visual changes, eye pain. Denies sore throat, oral lesions, difficulty swallowing. CARDIOVASCULAR: Denies chest pain. Denies palpitations. Denies lower extremity edema. RESPIRATORY: Denies cough. Denies shortness of breath, wheezing. GASTROINTESTINAL: Denies blood in vomitus, stools, or per rectum. Denies black, tarry stools. Denies constipation. GENITOURINARY: Denies difficulty urinating, painful urination, frequency, blood in urine, or vaginal discharge. MUSCULOSKELETAL: Denies back or neck pain or stiffness. Denies joint pain or swelling. SKIN: Denies rash, lesions or sores. HEMATOLOGIC : Denies easy bruising or bleeding. LYMPHATIC: Denies swollen glands. NEUROLOGICAL: Denies confusion or altered mental status. Denies loss of consciousness. Denies dizziness or lightheadedness. Denies headache. Denies weakness or paralysis. Denies problems difficulty with ambulation, slurred speech. Denies sensory loss, numbness, or tingling. Denies seizures. PSYCHIATRIC: Denies anxiety or stress. Denies depression, suicidal ideation, or homicidal ideation. Denies visual or auditory hallucinations. Physical Exam - Vital signs Vitals: Temp Pulse Resp BP Pulse Ox 98.2 F 133 H 19 130/78 H 98 12/04/18 00:11 12/04/18 00:11 12/04/18 00:11 12/04/18 00:11 12/04/18 00:11 - Notes Notes: PHYSICAL EXAMINATION: GENERAL: Well-appearing, well-nourished and in no acute distress. HEAD: Atraumatic, normocephalic. EYES: Pupils equal round and reactive to light, extraocular movements intact, conjunctiva are normal. ENT: Nares patent, oropharynx clear without exudates. Moist mucous membranes. NECK: Normal range of motion, supple without lymphadenopathy LUNGS: Breath sounds clear to auscultation bilaterally and equal. No wheezes rales or rhonchi. HEART: Regular rate and rhythm without murmurs ABDOMEN: Soft, tenderness with palpation to the left lower quadrant. No guarding, no rebound. No masses appreciated. Female : deferred Musculoskeletal: Normal range of motion, no pitting or edema. No cyanosis. NEUROLOGICAL: Cranial nerves grossly intact. Normal speech, normal gait. Julia l sensory, motor exams PSYCH: Normal mood, normal affect. SKIN: Warm, Dry, normal turgor, no rashes or lesions noted. Course - Re-evaluation Re-evalutation: 12/04/18 19:04 Laboratory 12/04/18 12/04/18 12/04/18 01:08 01:33 01:33 WBC 12.8 H RBC 5.06 Hgb 13.9 Hct 42.0 MCV 83 MCH 27.5 MCHC 33.2 RDW 14.6 H Plt Count 297 Seg Neutrophils % 59.3 Lymphocytes % 25.7 Monocytes % 10.5 Eosinophils % 3.8 Basophils % 0.7 Absolute Neutrophils 7.6 Absolute Lymphocytes 3.3 Absolute Monocytes 1.3 Absolute Eosinophils 0.5 Absolute Basophils 0.1 Sodium 138.4 Potassium 3.8 Chloride 104 Carbon Dioxide 23 Anion Gap 11 BUN 17 Creatinine 0.70 Est GFR ( Amer) > 60 Est GFR (Non-Af Amer) > 60 Glucose 99 Calcium 8.5 Total Bilirubin 0.2 Direct Bilirubin 0.2 Neonat Total Bilirubin Not Reportable Neonat Direct Bilirubin Not Reportable Neonat Indirect Bili Not Reportable AST 35 ALT 50 Alkaline Phosphatase 89 Total Protein 7.0 Albumin 3.8 Urine Color YELLOW Urine Appearance SLIGHTLY-CLOUDY Urine pH 5.0 Ur Specific Parker 1.024 Urine Protein NEGATIVE Urine Glucose (UA) NEGATIVE Urine Ketones NEGATIVE Urine Blood SMALL H Urine Nitrite NEGATIVE Urine Bilirubin NEGATIVE Urine Urobilinogen NEGATIVE Ur Leukocyte Esterase SMALL H Urine WBC (Auto) 5 Urine RBC (Auto) 5 Urine Bacteria (Auto) 2+ Squamous Epi Cells Auto 6 Urine Mucus (Auto) RARE Urine Ascorbic Acid NEGATIVE Transvaginal US 12/04/18 00:27 IMPRESSION: 1. Remote hysterectomy. 2. Approximately 1.8 cm indeterminant cyst arising from the left ovary. A follow-up ultrasound in 6-12 weeks is recommended. If unchanged, continue follow-up with ultrasound or MRI with IV contrast. If follow-up studies do not confirm endometrioma or dermoid, consider surgical evaluation. 3. No evidence of ovarian torsion. Abdomen/Pelvis CT 12/04/18 01:27 IMPRESSION: Cystic focus in the left adnexa, please refer to dedicated ultrasound from today's date. Nonobstructing left renal calculi. Fatty infiltrative change to the liver. Simple bilateral renal cysts. Abundant stool in the colon TECHNICAL DOCUMENTATION: Quality ID # 436: Final reports with documentation of one or more dose reduction techniques (e.g., Automated exposure control, adjustment of the mA and/or kV according to patient size, use of iterative reconstruction technique) copyright 2011 [employer]- All Rights Reserved Temp Pulse Resp BP Pulse Ox 97.7 F 92 18 114/79 98 12/04/18 03:59 12/04/18 03:59 12/04/18 03:59 12/04/18 03:59 12/04/18 03:59 43-year-old female presents with sudden onset of left lower quadrant abdominal pain that started approximately 12 hours prior to arrival. 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 She states a friend at work did a transabdominal ultrasound which did show a left-sided cyst and patient was concerned for torsion but got on the plane and flew home to [place]. Upon her initial exam patient appears to be in excruciating pain. She is bent over. She was taken immediately to ultrasound which showed no evidence of torsion and showed a small 1.8 cm left ovarian cyst. We then discussed CT which the patient was agreeable to which showed abundant amount of stool in the colon, left renal calculi, simple bilateral renal cysts and the cyst seen earlier on the ultrasound. Patient did receive Dilaudid, Zofran, Toradol during her ED course. On reevaluation she appears much more comfortable. At this point I see no evidence of surgical abdomen, appendicitis, diverticulitis. Patient input was taken into consideration at all times in her exam. Patient was provided copies of her imaging reports and lab work that was performed today. She states that she will take this to her primary care physician. She states she is comfortable with discharge home. Patient was evaluated and treated as appropriate for the patient's presenting symptoms and complaint, with consideration of any critical or life threatening conditions that may be associated with their obtained history and exam as noted above. All results were discussed with patient and her who is at the bedside. Patient provided the opportunity to ask questions, and express concerns. Patient was educated on treatments based on their presumed diagnosis as noted above. At this time we will discharge the patient with return precautions and follow-up recommendations. Verbal discharge instructions given a the bedside. Medication warnings reviewed. Patient is in agreement with this plan and has verbalized understanding of return precautions. After careful consideration I feel that that patient can be safely discharged from the emergency department, they were advised to followup with a primary car e physician in 2-3 days. Dictation on this chart was performed using voice recognition software and may result in unintended grammatical, spelling, syntax or errors. - Vital Signs Vital signs: Temp Pulse Resp BP Pulse Ox 97.7 F 92 18 114/79 98 12/04/18 03:59 12/04/18 03:59 12/04/18 03:59 12/04/18 03:59 12/04/18 03:59 - Laboratory Result Diagrams: 12/04/18 01:33 12/04/18 01:33 Laboratory results interpreted by me: 12/04/18 12/04/18 01:08 01:33 WBC 12.8 H RDW 14.6 H Urine Blood SMALL H Ur Leukocyte Esterase SMALL H - Diagnostic Test Radiology reviewed: Image reviewed, Reports reviewed Discharge - Discharge Clinical Impression: Left ovarian cyst, Renal calculus, left Abdominal pain Qualifiers: Abdominal location: left lower quadrant Qualified Code(s): R10.32 - Left lower quadrant pain Hematuria Qualifiers: Hematuria type: unspecified type Qualified Code(s): R31.9 - Hematuria, unspecified Constipation Qualifiers: Constipation type: unspecified constipation type Qualified Code(s): K59.00 - Constipation, unspecified Condition: Good Disposition: HOME, SELF-CARE Instructions: Abdominal Pain ([facility]), Hematuria ([facility]), Ovarian Cyst ([facility]) Additional Instructions: Follow up with your [id number] hours for further care or return to the ED IMMEDIATELY if symptoms worsen or you have any concerns. If you cannot afford to follow up with your primary care physician a list of low cost clinics have been provided at the end of your discharge papers as well. Most prescribed medications have multiple side effects. The safest thing to do is when filling your prescription speak to your pharmacist regarding possible interactions with your normal home medications and over the counter medications such as Ibuprofen, Tylenol, Benadryl. If you experience any symptoms that cause you discomfort or concern you should discontinue the medication immediately and return to the emergency room or call your primary care physician. Referrals: GISELLA MEADE FNP [Primary Care Provider] - Follow up as needed
[2018-12-04 01:45] LABS: ABSOLUTE BASOPHILS # (AUTO) 0.1 10^3/uL (0.0-0.2); ABSOLUTE EOSINOPHILS # (AUTO) 0.5 10^3/uL (0.0-0.6); ABSOLUTE LYMPHOCYTES (AUTO) 3.3 10^3/uL (0.5-4.7); ABSOLUTE MONOCYTES (AUTO) 1.3 10^3/uL (0.1-1.4); ABSOLUTE NEUT (AUTO) 7.6 10^3/uL (1.7-8.2); BASOPHILS % (AUTO) 0.7 % (0-2); EOSINOPHILS % (AUTO) 3.8 % (0-6); HEMOGLOBIN 13.9 g/dL (12.0-15.5); LYMPHOCYTES % (AUTO) 25.7 % (13-45); MEAN CORPUSCULAR HEMOGLOBIN 27.5 pg (27.0-33.4); MEAN CORPUSCULAR HGB CONC 33.2 g/dL (32.0-36.0); MEAN CORPUSCULAR VOLUME 83 fl (80-97); MONOCYTES % (AUTO) 10.5 % (3-13); PLATELET COUNT 297 10^3/uL (150-450); RED BLOOD COUNT 5.06 10^6/uL (3.72-5.28); RED CELL DISTRIBUTION WIDTH 14.6 % (11.5-14.0); SEGMENTED NEUTROPHILS % (AUTO) 59.3 % (42-78); TOTAL CELLS COUNTED % (AUTO) 100 %; WHITE BLOOD COUNT 12.8 10^3/uL (4.0-10.5)
--- NOTE | 2018-12-04 01:46 | RADIOLOGY REPORT (SQ) ---
CLINICAL DATA: 43-year-old female with left-sided pelvic pain and abdominal pain with history of torsion. TECHNICAL DATA: Ultrasound imaging of the pelvis was performed endovaginally on 12/04/2018 00:27. COMPARISONS: None FINDINGS: The uterus is surgically absent. The right ovary measures 2.6 x 2.3 x 2.4 cm. Doppler imaging demonstrates normal pulsed and color Doppler flow. The left ovary measures 3.5 x 2.4 x 2.7 cm. There is a focal avascular area of decreased echogenicity within the left ovary measuring 1.7 x 1.8 x 1.5 cm likely representing an ovarian cyst. Doppler imaging demonstrates normal pulsed and color Doppler flow. There is no free fluid in the pelvis. No definite adnexal mass lesions are identified. IMPRESSION: 1. Remote hysterectomy. 2. Approximately 1.8 cm indeterminant cyst arising from the left ovary. A follow-up ultrasound in 6-12 weeks is recommended. If unchanged, continue follow-up with ultrasound or MRI with IV contrast. If follow-up studies do not confirm endometrioma or dermoid, consider surgical evaluation. 3. No evidence of ovarian torsion.
[2018-12-04 02:15] LABS: ALANINE AMINOTRANSFERASE 50 U/L (9-52); ALBUMIN 3.8 g/dL (3.5-5.0); ALKALINE PHOSPHATASE 89 U/L (38-126); ANION GAP 11 (5-19); ASPARTATE AMINO TRANSFERASE 35 U/L (14-36); BILIRUBIN,DIRECT 0.2 mg/dL (0.0-0.4); BILIRUBIN,TOTAL 0.2 mg/dL (0.2-1.3); BLOOD UREA NITROGEN 17 mg/dL (7-20); CALCIUM 8.5 mg/dL (8.4-10.2); CARBON DIOXIDE 23 mmol/L (22-30); CHLORIDE 104 mmol/L (98-107); GLUCOSE 99 mg/dL (75-110); POTASSIUM 3.8 mmol/L (3.6-5.0); SODIUM 138.4 mmol/L (137-145)
--- NOTE | 2018-12-04 02:55 | RADIOLOGY REPORT (SQ) ---
EXAM DESCRIPTION: CT ABDOMEN PELVIS WITH IV CONTRAST COMPLETED DATE/TME: 12/04/2018 01:27 CLINICAL HISTORY: 43 years, Female, Left lower quadrant abdominal pain. HX: NF1 COMPARISON: TODAY'S DATE. TECHNIQUE: 726 Images stored on PACS. All CT scanners at this facility use dose modulation, iterative reconstruction, and/or weight based dosing when appropriate to reduce radiation dose to as low as reasonably achievable (ALARA). [facility]: Dose Right [facility]: CareDose [facility]: Dose Right [facility]: Teradose 4D [facility]: [employer] LIMITATIONS: None. FINDINGS: Limited evaluation of the lung bases is unremarkable. Osseous structures are grossly intact. Fatty infiltrative change to the liver. The spleen, adrenal glands, pancreas are unremarkable. Simple appearing renal cysts bilaterally. Punctate nonobstructing left renal calculi as well as a small cluster of calcifications in the inferior pole of the left kidney measuring 4.7 mm. Kidneys are otherwise unremarkable. No gross evidence for bowel obstruction. Abundant stool in the colon. No free air. No free fluid. As described on ultrasound, there is a cyst in the left adnexal region. Recommend follow-up as per ultrasound. The appendix is not well seen. Correlate with surgical history. No pericecal inflammation. IMPRESSION: Cystic focus in the left adnexa, please refer to dedicated ultrasound from today's date. Nonobstructing left renal calculi. Fatty infiltrative change to the liver. Simple bilateral renal cysts. Abundant stool in the colon TECHNICAL DOCUMENTATION: Quality ID # 436: Final reports with documentation of one or more dose reduction techniques (e.g., Automated exposure control, adjustment of the mA and/or kV according to patient size, use of iterative reconstruction technique) copyright 2011 [employer]- All Rights Reserved
[2018-12-04] MEDS ORDERED: KETOROLAC TROMETHAMINE INJ/PF 30 MG/1 ML SDV IV ONE (03:24)
[2018-12-04 04:07] VITALS: BP 114/79
== END 2018-12-04 04:08 | disposition home or self-care (01) ==
LOC: ER 00:05
DX: N83.202 Unspecified ovarian cyst, left side (principal); N20.0 Calculus of kidney; R10.32 Left lower quadrant pain; R31.9 Hematuria, unspecified; K59.00 Constipation, unspecified; R10.9 Unspecified abdominal pain; R50.9 Fever, unspecified; R19.5 Other fecal abnormalities; R19.7 Diarrhea, unspecified; R11.2 Nausea with vomiting, unspecified
CPT/HCPCS: 96376; 99284; 96374; 96375; 36415; 85025; 80053; 81001; 76830; 93976; 74177; J1200; J1885; J1170; J2405

== ENCOUNTER 2018-12-06 12:25 | Day surgery (SDC) | payer OTHER ==
--- NOTE | 2018-12-06 13:09 | ER Document Report ---
ED Medical Screen (RME) - General Chief Complaint: Abdominal Pain Stated Complaint: ABDOMINAL PAIN Time Seen by Provider: 12/06/18 13:02 Primary Care Provider: GISELLA MEADE FNP [Primary Care Provider] - Follow up as needed Notes: 43-year-old female presented to ED for complaint of severe pelvic pain she has a history of ovarian torsion. She has a partial hysterectomy still has the ovary. She is having sharp stabbing pain to the pelvic area. She was seen in [place] on Saturday and was told she had a ovarian cyst but they did not see an ovarian torsion. She states she is continued to have pain in the pain is much worse today. She also has a history of breast cancer bilateral and they were able to remove the tumor do a flap and reconstruction. Patient is in level 5 out of 5 pain. She states she took some hydrocodone a couple hours ago and does not want anything else for pain at this time. Blood urine and ultrasound have been ordered. ID consult with Dr. Carpenter and he said that is pretty much what needs to be done at this time. I have greeted and performed a rapid initial assessment of this patient. A comprehensive ED assessment and evaluation of the patient, analysis of test results and completion of medical decision making process will be conducted by an additional ED providers. TRAVEL OUTSIDE OF THE [place] IN LAST 30 DAYS: Yes COUNTRY TRAVELED TO/FROM: [place] - Related Data Allergies/Adverse Reactions: adhesive tape [Adhesive Tape] Allergy (Severe, Verified 12/06/18 12:29) latex [Latex] Allergy (Verified 12/06/18 12:29) Anaphylaxis Penicillins Allergy (Verified 12/06/18 12:29) Anaphylaxis cephalexin [From Keflex] Adverse Reaction (Verified 12/06/18 12:29) morphine Adverse Reaction (Verified 12/06/18 12:29) Past Medical History - Social History Family history: Reviewed & Not Pertinent - Past Medical History Cardiac Medical History: Reports: Hx Heart Attack Denies: Hx Coronary Artery Disease, Hx Hypertension Pulmonary Medical History: Reports: Hx Asthma - seasonal, Hx Pneumonia - Not hospitalized Denies: Hx Bronchitis, Hx COPD, Hx Tuberculosis Neurological Medical History: Denies: Hx Cerebrovascular Accident, Hx Seizures Endocrine Medical History: Reports: Hx Hypothyroidism - hashimotos Renal/ Medical History: Reports: Hx Kidney Stones - polycystic kidney. Denies: Hx Peritoneal Dialysis Musculoskeltal Medical History: Reports Hx Arthritis - RA Past Surgical History: Reports: Hx Hysterectomy, Hx Thyroid Surgery. Denies: Hx Pacemaker - Immunizations Hx Diphtheria, Pertussis, Tetanus Vaccination: Yes - 2013 History of Influenza Vaccine for 05/2017 - 10/2017 Season: No Physical Exam - Vital signs Vitals: Temp Pulse Resp BP Pulse Ox 98.3 F 105 H 18 128/80 H 98 12/06/18 12:35 12/06/18 12:35 12/06/18 12:35 12/06/18 12:35 12/06/18 12:35 Course - Vital Signs Vital signs: Temp Pulse Resp BP Pulse Ox 98.3 F 105 H 18 128/80 H 98 12/06/18 12:35 12/06/18 12:35 12/06/18 12:35 12/06/18 12:35 12/06/18 12:35 Doctor's Discharge - Discharge Referrals: GISELLA MEADE FNP [Primary Care Provider] - Follow up as needed
[2018-12-06 13:49] LABS: ABSOLUTE EOSINOPHILS # (AUTO) 0.4 10^3/uL (0.0-0.6); ABSOLUTE LYMPHOCYTES (AUTO) 2.2 10^3/uL (0.5-4.7); ABSOLUTE MONOCYTES (AUTO) 0.7 10^3/uL (0.1-1.4); ABSOLUTE NEUT (AUTO) 5.9 10^3/uL (1.7-8.2); BASOPHILS % (AUTO) 0.5 % (0-2); EOSINOPHILS % (AUTO) 4.4 % (0-6); HEMOGLOBIN 14.5 g/dL (12.0-15.5); LYMPHOCYTES % (AUTO) 23.5 % (13-45); MEAN CORPUSCULAR HEMOGLOBIN 27.9 pg (27.0-33.4); MEAN CORPUSCULAR HGB CONC 33.8 g/dL (32.0-36.0); MEAN CORPUSCULAR VOLUME 83 fl (80-97); PLATELET COUNT 303 10^3/uL (150-450); RED CELL DISTRIBUTION WIDTH 14.8 % (11.5-14.0); SEGMENTED NEUTROPHILS % (AUTO) 63.6 % (42-78); TOTAL CELLS COUNTED % (AUTO) 100 %; WHITE BLOOD COUNT 9.3 10^3/uL (4.0-10.5)
[2018-12-06 13:59] LABS: APPEARANCE,URINE SLIGHTLY-CLOUDY; BILIRUBIN,URINE NEGATIVE (NEGATIVE); COLOR,URINE YELLOW; GLUCOSE, URINE NEGATIVE (NEGATIVE); KETONES,URINE NEGATIVE (NEGATIVE); LEUKOCYTE ESTERASE,URINE NEGATIVE (NEGATIVE); NITRITE,URINE NEGATIVE (NEGATIVE); PROTEIN,URINE NEGATIVE (NEGATIVE); URINE SPECIFIC GRAVITY 1.012; UROBILINOGEN,URINE NEGATIVE mg/dL (<2.0)
[2018-12-06 14:04] LABS: ALANINE AMINOTRANSFERASE 49 U/L (9-52); ALKALINE PHOSPHATASE 87 U/L (38-126); ANION GAP 8 (5-19); ASPARTATE AMINO TRANSFERASE 36 U/L (14-36); BILIRUBIN,DIRECT 0.2 mg/dL (0.0-0.4); BILIRUBIN,TOTAL 0.4 mg/dL (0.2-1.3); BLOOD UREA NITROGEN 11 mg/dL (7-20); CARBON DIOXIDE 26 mmol/L (22-30); CHLORIDE 107 mmol/L (98-107); GLUCOSE 87 mg/dL (75-110); POTASSIUM 4.4 mmol/L (3.6-5.0); SODIUM 141.4 mmol/L (137-145); TOTAL PROTEIN 7.2 g/dL (6.3-8.2)
[2018-12-06] MEDS ORDERED: ROCURONIUM BROMIDE INJ 50 MG/5 ML VIAL IV ONE (14:31)
[2018-12-06] MEDS ORDERED: SUCCINYLCHOLINE CHLORIDE INJ 200 MG/10 ML VIAL ONE (14:31)
--- NOTE | 2018-12-06 14:48 | RADIOLOGY REPORT (SQ) ---
EXAM DESCRIPTION: U/S NON OB PEL TV W/DOPPLER COMPLETED DATE/TIME: 12/06/2018 2:24 pm REASON FOR STUDY: History of ovarian torsion, pelvic pain COMPARISON: 12/04/2018 TECHNIQUE: Dynamic and static grayscale images acquired of the pelvis via transvaginal approach and recorded on PACS. Additional selected color Doppler and spectral images recorded. LIMITATIONS: Poor acoustical window. FINDINGS: UTERUS: Surgically abscess RIGHT OVARY AND DOPPLER: Ovary not visualized. LEFT OVARY AND DOPPLER: Ovary not visualized. FREE FLUID: None noted. OTHER: No other significant finding. MEASUREMENTS: UTERUS: Not applicable. ENDOMETRIAL STRIPE: Not applicable. RIGHT OVARY: Not visualized. LEFT OVARY: Not visualized. IMPRESSION: Remote hysterectomy. The ovaries are not identified on the current study. TECHNICAL DOCUMENTATION: JOB ID: [id number] [employer]- All Rights Reserved Rev-01/03 Reading location - IP/workstation name: [email or web address]
[2018-12-06] MEDS ORDERED: HYDROMORPHONE HCL INJ/PF 2 MG/ML AMPULE IV ONE (15:07)
[2018-12-06] MEDS ORDERED: ONDANSETRON HCL INJ/PF 4 MG/2 ML SDV IV ONE (15:08)
--- NOTE | 2018-12-06 15:15 | ER Document Report ---
ED General - General Chief Complaint: Abdominal Pain Stated Complaint: ABDOMINAL PAIN Time Seen by Provider: 12/06/18 13:02 Mode of Arrival: Wheelchair Information source: Patient, [facility] Records Notes: 43-year-old female presents for the second time in 3 days with left lower quadrant abdominal pain. Patient describes the pain as stabbing, constant. Patient was seen by myself 2 days ago when a CT of the abdomen and pelvis were performed as well as a transvaginal ultrasound. At that time patient was found to have an abundant amount of stool in the colon and to have a 1.8 cm left ovarian cyst. Patient reports that the pain has gradually worsened. She was seen by her primary care physician who requested that she return to the emergency department for repeat ultrasound and bimanual exam which the patient initially refused. Patient does have a history of partial hysterectomy that was performed in 2008. Patient has had associated diaphoresis, nausea. TRAVEL OUTSIDE OF THE [place] IN LAST 30 DAYS: Yes COUNTRY TRAVELED TO/FROM: [facility] - [facility] Onset: Other Onset/Duration: Persistent, Worse Quality of pain: Stabbing Severity: Severe Pain Level: 5 Associated symptoms: Nausea, Sweating, Other - Abdominal pain Exacerbated by: Denies Relieved by: Other - Direct pressure Similar symptoms previously: Yes Recently seen / treated by doctor: Yes - Related Data Allergies/Adverse Reactions: adhesive tape [Adhesive Tape] Allergy (Severe, Verified 12/06/18 12:29) latex [Latex] Allergy (Verified 12/06/18 12:29) Anaphylaxis Penicillins Allergy (Verified 12/06/18 12:29) Anaphylaxis cephalexin [From Keflex] Adverse Reaction (Verified 12/06/18 12:29) morphine Adverse Reaction (Verified 12/06/18 12:29) Past Medical History - General Information source: Patient, [facility] Records - Social History Smoking Status: Former Smoker Frequency of alcohol use: Occasional Drug Abuse: None Lives with: Spouse/Significant other Family History: CAD - father and mother, DM - mother, Hyperlipidemia, Hypertension Patient has suicidal ideation: No Patient has homicidal ideation: No - Past Medical History Cardiac Medical History: Reports: Hx Heart Attack Denies: Hx Coronary Artery Disease, Hx Hypertension Pulmonary Medical History: Reports: Hx Asthma - seasonal, Hx Pneumonia - Not hospitalized Denies: Hx Bronchitis, Hx COPD, Hx Tuberculosis Neurological Medical History: Denies: Hx Cerebrovascular Accident, Hx Seizures Endocrine Medical History: Reports: Hx Hypothyroidism - hashimotos Renal/ Medical History: Reports: Hx Kidney Stones - polycystic kidney. Denies: Hx Peritoneal Dialysis Musculoskeletal Medical History: Reports Hx Arthritis - RA Past Surgical History: Reports: Hx Hysterectomy, Hx Thyroid Surgery. Denies: Hx Pacemaker - Immunizations Hx Diphtheria, Pertussis, Tetanus Vaccination: Yes - 2013 Hx Pneumococcal Vaccination: 06/19/11 Review of Systems - Review of Systems Notes: REVIEW OF SYSTEMS: CONSTITUTIONAL : Denies fever, chills,. Denies recent illness. Denies weight loss, recent hospitalizations. EENT: Denies visual changes, eye pain. Denies sore throat, oral lesions, difficulty swallowing. CARDIOVASCULAR: Denies chest pain. Denies palpitations. Denies lower extremity edema. RESPIRATORY: Denies cough. Denies shortness of breath, wheezing. GASTROINTESTINAL: Denies abdominal distention. Denies vomiting, or diarrhea. Denies blood in vomitus, stools, or per rectum. Denies black, tarry stools. Denies constipation. GENITOURINARY: Denies difficulty urinating, painful urination, frequency, blood in urine, or vaginal discharge. MUSCULOSKELETAL: Denies back or neck pain or stiffness. Denies joint pain or swelling. SKIN: Denies rash, lesions or sores. HEMATOLOGIC : Denies easy bruising or bleeding. LYMPHATIC: Denies swollen glands. NEUROLOGICAL: Denies confusion or altered mental status. Denies loss of consciousness. Denies dizziness or lightheadedness. Denies headache. Denies weakness or paralysis. Denies problems difficulty with ambulation, slurred speech. Denies sensory loss, numbness, or tingling. Denies seizures. PSYCHIATRIC: Denies anxiety or stress. Denies depression, suicidal ideation, or homicidal ideation. Denies visual or auditory hallucinations. Physical Exam - Vital signs Vitals: Temp Pulse Resp BP Pulse Ox 98.3 F 105 H 18 128/80 H 98 12/06/18 12:35 12/06/18 12:35 12/06/18 12:35 12/06/18 12:35 12/06/18 12:35 - Notes Notes: PHYSICAL EXAMINATION: GENERAL: Well-appearing, well-nourished and in no acute distress. HEAD: Atraumatic, normocephalic. EYES: Pupils equal round and reactive to light, extraocular movements intact, conjunctiva are normal. ENT: Nares patent, oropharynx clear without exudates. Moist mucous membranes. NECK: Normal range of motion, supple without lymphadenopathy LUNGS: Breath sounds clear to auscultation bilaterally and equal. No wheezes rales or rhonchi. HEART: Regular rate and rhythm without murmurs ABDOMEN: Soft, nontender, nondistended abdomen. No guarding, no rebound. No masses appreciated. Female : Pelvic exam; External genitalia unremarkable. Speculum exam with mild white discharge. Vaginal wall unremarkable. Cervix absent tenderness. Positive adnexal tenderness. Swabs obtained for gonorrhea, chlamydia and wet prep. Musculoskeletal: Normal range of motion, no pitting or edema. No cyanosis. NEUROLOGICAL: Cranial nerves grossly intact. Normal speech, normal gait. Normal sensory, motor exams PSYCH: Normal mood, normal affect. SKIN: Warm, Dry, normal turgor, no rashes or lesions noted. Course - Re-evaluation Re-evalutation: 12/06/18 16:07 OB consulted. 12/06/18 19:13 Laboratory 12/06/18 12/06/18 12/06/18 13:28 13:28 13:28 WBC 9.3 RBC 5.20 Hgb 14.5 Hct 43.0 MCV 83 MCH 27.9 MCHC 33.8 RDW 14.8 H Plt Count 303 Seg Neutrophils % 63.6 Lymphocytes % 23.5 Monocytes % 8.0 Eosinophils % 4.4 Basophils % 0.5 Absolute Neutrophils 5.9 Absolute Lymphocytes 2.2 Absolute Monocytes 0.7 Absolute Eosinophils 0.4 Absolute Basophils 0.0 Sodium 141.4 Potassium 4.4 Chloride 107 Carbon Dioxide 26 Anion Gap 8 BUN 11 Creatinine 0.68 Est GFR ( Amer) > 60 Est GFR (Non-Af Amer) > 60 Glucose 87 Calcium 9.0 Total Bilirubin 0.4 Direct Bilirubin 0.2 Neonat Total Bilirubin Not Reportable Neonat Direct Bilirubin Not Reportable Neonat Indirect Bili Not Reportable AST 36 ALT 49 Alkaline Phosphatase 87 Total Protein 7.2 Albumin 4.0 Urine Color YELLOW Urine Appearance SLIGHTLY-CLOUDY Urine pH 8.0 Ur Specific [place] 1.012 Urine Protein NEGATIVE Urine Glucose (UA) NEGATIVE Urine Ketones NEGATIVE Urine Blood NEGATIVE Urine Nitrite NEGATIVE Urine Bilirubin NEGATIVE Urine Urobilinogen NEGATIVE Ur Leukocyte Esterase NEGATIVE Urine WBC (Auto) 2 Urine RBC (Auto) 1 Urine Bacteria (Auto) 3+ Squamous Epi Cells Auto 4 Urine Mucus (Auto) RARE Urine Ascorbic Acid NEGATIVE Trichomonas (Wet Prep) Vaginal WBC Vaginal Yeast Chlamydia DNA (PCR) N.gonorrhoeae DNA (PCR) 12/06/18 12/06/18 15:50 15:50 WBC RBC Hgb Hct MCV MCH MCHC RDW Plt Count Seg Neutrophils % Lymphocytes % Monocytes % Eosinophils % Basophils % Absolute Neutrophils Absolute Lymphocytes Absolute Monocytes Absolute Eosinophils Absolute Basophils Sodium Potassium Chloride Carbon Dioxide Anion Gap BUN Creatinine Est GFR ( Amer) Est GFR (Non-Af Amer) Glucose Calcium Total Bilirubin Direct Bilirubin Neonat Total Bilirubin Neonat Direct Bilirubin Neonat Indirect Bili AST ALT Alkaline Phosphatase Total Protein Albumin Urine Color Urine Appearance Urine pH Ur Specific [place] Urine Protein Urine Glucose (UA) Urine Ketones Urine Blood Urine Nitrite Urine Bilirubin Urine Urobilinogen Ur Leukocyte Esterase Urine WBC (Auto) Urine RBC (Auto) Urine Bacteria (Auto) Squamous Epi Cells Auto Urine Mucus (Auto) Urine Ascorbic Acid Trichomonas (Wet Prep) NO TRICHOMONAS SEEN Vaginal WBC RARE WBCS SEEN Vaginal Yeast NO YEAST SEEN Chlamydia DNA (PCR) NOT DETECTED N.gonorrhoeae DNA (PCR) NOT DETECTED Transvaginal US 12/06/18 13:02 IMPRESSION: Remote hysterectomy. The ovaries are not identified on the current study. Temp Pulse Resp BP Pulse Ox 98.7 F 96 18 124/67 99 12/06/18 19:08 12/06/18 19:08 12/06/18 12:35 12/06/18 19:08 12/06/18 19:08 43-year-old female presents with left lower quadrant pain. Vital signs reviewed upon arrival and within normal limits. Patient was seen 2 days ago for similar symptoms by myself and a transvaginal ultrasound was obtained which showed a 1.8 cm cyst and no evidence of torsion. CT of the abdomen was also obtained and showed no acute abdominal process. Again today patient has unremarkable labs, urinalysis, no evidence of gonorrhea, chlamydia, trichomonas. Pelvic exam was performed and patient had significant left adnexal tenderness. OB was consulted and has elected to take the patient to the OR for exploratory laparotomy. Patient agreeable with admission. - Vital Signs Vital signs: Temp Pulse Resp BP Pulse Ox 98.3 F 105 H 18 128/80 H 98 12/06/18 12:35 12/06/18 12:35 12/06/18 12:35 12/06/18 12:35 12/06/18 12:35 - Laboratory Result Diagrams: 12/06/18 13:28 12/06/18 13:28 Laboratory results interpreted by me: 12/06/18 13:28 RDW 14.8 H - Diagnostic Test Radiology reviewed: Image reviewed, Reports reviewed Discharge - Discharge Clinical Impression: Left ovarian cyst Abdominal pain Qualifiers: Abdominal location: left lower quadrant Qualified Code(s): R10.32 - Left lower quadrant pain Condition: Good Disposition: ADMITTED INPATIENT Admitting Provider: [facility] Unit Admitted: Post
[2018-12-06] MEDS ORDERED: KETOROLAC TROMETHAMINE INJ/PF 30 MG/1 ML SDV IV ONE (16:06)
[2018-12-06 16:20] LABS: T.VAGINALIS (WET MOUNT) NO TRICHOMONAS SEEN
[2018-12-06 16:21] LABS: WBCS (WET MOUNT) RARE WBCS SEEN; YEAST (WET MOUNT) NO YEAST SEEN
[2018-12-06 17:50] LABS: CHLAM PCR NOT DETECTED (NOT DETECT); GON PCR NOT DETECTED (NOT DETECT)
[2018-12-06] MEDS ORDERED: HYDROMORPHONE HCL INJ/PF 2 MG/ML AMPULE ONE (19:37)
[2018-12-06] MEDS ORDERED: ACETAMINOPHEN 1,000 MG/100 ML RTUPB IV ONE (19:37)
[2018-12-06] MEDS ORDERED: FENTANYL CITRATE INJ/PF 100 MCG/2 ML AMPUL ONE (19:37)
[2018-12-06] MEDS ORDERED: MIDAZOLAM 2 MG/2 ML INJ ONE (19:37)
[2018-12-06] MEDS ORDERED: PROPOFOL INJ 200 MG/20 ML VIAL IV ONE (19:37)
[2018-12-06] MEDS ORDERED: ONDANSETRON HCL INJ/PF 4 MG/2 ML SDV ONE (19:37)
[2018-12-06] MEDS ORDERED: BUPIVACAINE HCL 0.25 % INJ/PF (2.5 MG/1 ML) 30 ML VIAL ONE (20:01)
[2018-12-06] MEDS ORDERED: PROMETHAZINE HCL INJ 25 MG/1 ML VIAL IV PRN (20:42)
[2018-12-06] MEDS ORDERED: MEPERIDINE HCL/PF INJ 25 MG/1 ML DISP.SYRIN IV PRN (20:42)
[2018-12-06] MEDS ORDERED: FENTANYL CITRATE INJ/PF 100 MCG/2 ML AMPUL IV PRN ×3 (20:42)
[2018-12-06] MEDS ORDERED: DIPHENHYDRAMINE HCL 50 MG/ML VIAL IV PRN (20:42)
[2018-12-06] MEDS ORDERED: SUGAMMADEX SODIUM 200 MG/2 ML SDV IV ONE (21:09)
[2018-12-06] MEDS ORDERED: KETOROLAC TROMETHAMINE 60 MG/2 ML SDV ONE (21:09)
--- NOTE | 2018-12-06 21:49 | PDOC CONSULTATION ---
Consultation Consult Date: 12/06/18 Attending physician:: EWA NESS History of Present Illness Admission Date/PCP: 12/06/18 17:38 Left lower quadrant pain with history of left ovarian torsion History of Present Illness: LYNNE ZAMORA is a 43 year old female P2 that presents to the ED with complaints of worsening left lower quadrant pain. Patient had radiology studies completed 3 days earlier and was noted to have normal ovaries bilaterally with 1.8cm cyst of the right ovary. No free was noted in the pelvis. This is patient's second time to the ED in 3 days. Patient notes pain is 8-10/10. Pain is constant in the LLQ and comes in waves of severity. Pain radiates to her groin and upper thigh. Pt denies any associated bowel or urinary complaints. Patient has associated diaphoretic episodes when she has her severe wave of ginny n. Patient states has this pain on a monthly basis for about 3 days and goes away. Patient feels that this is lasting longer and does not feel like the pain she has monthly. Pt states the pain that she is having on the left is the same as when she was noted to have a torsed ovary in 2008 at the time of her hysterectomy. Pt states Dr. Goldberg untorsed her ovary at the time of surgery and told her that the torsion could reoccur. Pt desires to have laparoscopy with removal of her left ovary noting that she has a remaining right ovary. Discussed risk of surgery to bleeding, infection, possible damage to adjacent structures such as the bowel, bladder, ureters, nerves and vessels. Risk of laparotomy, risk of thromboembolic disease. Risk of anesthesia. Knowing the above risks, patient still desires to go forward with surgery. Past Medical History Gynecological Infection: No Gynecological History Note: 2008 hysterectomy with A/P repair Obstetrical History: none - Vaginal delivery x 2 Cardiac Medical History: Reports: Myocardial Infarction Denies: Coronary Artery Disease, Hypertension Pulmonary Medical History: Reports: Asthma - seasonal, Pneumonia - Not hospitalized Denies: Bronchitis, Chronic Obstructive Pulmonary Disease (COPD), Tuber culosis Neurological Medical History: Denies: Seizures Endocrine Medical History: Reports: Hypothyroidism - hashimotos Musculoskeltal Medical History: Reports: Arthritis - RA Social History Lives with: Spouse/Significant other Smoking Status: Former Smoker Frequency of Alcohol Use: Rare Hx Recreational Drug Use: No Hx Prescription Drug Abuse: No Family History Family History: CAD - father and mother, DM - mother, Hyperlipidemia, Hypertensi on Parental Family History Reviewed: No - not contributory Children Family History Reviewed: NA Sibling(s) Family History Reviewed.: NA Medication/Allergy Home Medications: Fexofenadine HCl [Tavia] 180 mg PO DAILY 12/10/11 Fluconazole [Diflucan] 50 mg PO DAILY PRN 12/10/11 Fluticasone Propionate [Flonase Nasal [place] 50 Mcg/[place] 16 gm] 1 puff IH BID PRN 12/10/11 Hydrochlorothiazide [Hydrodiuril 25 mg Tablet] 25 mg PO BID 12/10/11 Ipratropium/Albuterol Sulfate [Combivent Inhaler] 14.7 gm IH PRN PRN 12/10/11 Levothyroxine Sodium [Synthroid 0.1 mg Tablet] 175 mcg PO DAILY 12/10/11 Metronidazole [Flagyl 500 mg Tablet] 1,000 mg PO PRN PRN 12/10/11 Celecoxib [Celebrex 400 mg Capsule] 400 mg PO BID 12/25/11 Sulfamethoxazole/Trimethoprim [Septra-Ds Tablet] 1 tab PO PRN PRN 04/24/12 Colchicine [Colchicine 0.6 mg Tablet] 1.8 mg PO DAILY #0 tablet 12/20/13 Allergies/Adverse Reactions: adhesive tape [Adhesive Tape] Allergy (Severe, Verified 12/06/18 12:29) latex [Latex] Allergy (Verified 12/06/18 12:29) Anaphylaxis Penicillins Allergy (Verified 12/06/18 12:29) Anaphylaxis cephalexin [From Keflex] Adverse Reaction (Verified 12/06/18 12:29) morphine Adverse Reaction (Verified 12/06/18 12:29) Physical Exam - Physical Exam Vital Signs: Temp Pulse Resp BP Pulse Ox 98.3 F 105 H 18 128/80 H 98 12/06/18 12:35 12/06/18 12:35 12/06/18 12:35 12/06/18 12:35 12/06/18 12:35 Intake & Output 12/05/18 12/06/18 12/07/18 06:59 06:59 06:59 Weight 77.2 kg General appearance: PRESENT: no acute distress, cooperative, obese - abdominal mostly Head exam: PRESENT: atraumatic, normocephalic Eye exam: PRESENT: EOMI Respiratory exam: PRESENT: clear to auscultation valerie, unlabored Cardiovascular exam: PRESENT: RRR, +S1, +S2 GI/Abdominal exam: PRESENT: guarding - volunarty guarding and no rebound, normal bowel sounds, soft, other - TTP in the left lower quadrant Rectal exam: PRESENT: deferred Musculoskeletal exam: PRESENT: full ROM Neurological exam: PRESENT: alert, awake, oriented to person, oriented to place, oriented to time, oriented to situation Psychiatric exam: PRESENT: appropriate affect, normal mood Skin exam: PRESENT: dry, intact, warm - Gynecological Exam Labia: normal Urethra: normal Introitus: normal Perineum: normal Vagina: normal Cervix: other - surgically absent Uterus: other - surgically absent Adhexa: tender - left lower quadrant; no pelvic inflammation detected Result Laboratory Results: 12/06/18 13:28 12/06/18 13:28 12/06/18 12/06/18 12/06/18 13:28 13:28 13:28 WBC 9.3 RBC 5.20 Hgb 14.5 Hct 43.0 MCV 83 MCH 27.9 MCHC 33.8 RDW 14.8 H Plt Count 303 Seg Neutrophils % 63.6 Lymphocytes % 23.5 Monocytes % 8.0 Eosinophils % 4.4 Basophils % 0.5 Absolute Neutrophils 5.9 Absolute Lymphocytes 2.2 Absolute Monocytes 0.7 Absolute Eosinophils 0.4 Absolute Basophils 0.0 Sodium 141.4 Potassium 4.4 Chloride 107 Carbon Dioxide 26 Anion Gap 8 BUN 11 Creatinine 0.68 Est GFR ( Amer) > 60 Est GFR (Non-Af Amer) > 60 Glucose 87 Calcium 9.0 Total Bilirubin 0.4 AST 36 ALT 49 Alkaline Phosphatase 87 Total Protein 7.2 Albumin 4.0 Urine Color YELLOW Urine Appearance SLIGHTLY-CLOUDY Urine pH 8.0 Ur Specific [place] 1.012 Urine Protein NEGATIVE Urine Glucose (UA) NEGATIVE Urine Ketones NEGATIVE Urine Blood NEGATIVE Urine Nitrite NEGATIVE Ur Leukocyte Esterase NEGATIVE Urine WBC (Auto) 2 Urine RBC (Auto) 1 Impressions: Transvaginal US 12/06/18 13:02 IMPRESSION: Remote hysterectomy. The ovaries are not identified on the current study. Status: Image reviewed by me - Ovaries noted by me on study today, no doppler placed to note if flow to ovaries is present. No free fluid in pelvis. Assessment & Plan - Plan Summary Plan Summary: Patient desires to go forward with a diagnostic laparoscopy with removal of the left ovary regardless of torsion. Discussed risk of surgery to bleeding, infection, possible damage to adjacent structures such as the bowel, bladder, ureters, nerves and vessels. Risk of laparotomy, risk of thromboembolic disease. Risk of anesthesia. Knowing the above risks, patient still desires to go forward with surgery.
[2018-12-06] MEDS ORDERED: PROMETHAZINE HCL INJ 25 MG/1 ML VIAL ONE (22:00)
[2018-12-06 22:34] VITALS: BP 110/70
--- NOTE | 2018-12-07 09:22 | Operative Report ---
Operative Report DATE OF SURGERY: 12/06/18 PREOPERATIVE DIAGNOSIS: Left lower quadrant pain. Left ovarian cyst. Prior hi story of ovarian torsion POSTOPERATIVE DIAGNOSIS: Left ovarian cyst. No evidence of torsion. Left ovary densely adhesed to left pelvic sidewall and omentum OPERATION: Diagnostic laparoscopy SURGEON: EWA NESS 1ST CLASSIFICATIONS OFFICER CC/CM: SUKI MIRANDA ANESTHESIA: GA - local in the form of quarter percent marcaine was injected in to the skin of the laparascopic port sites TISSUE REMOVED OR ALTERED: left ovary with cyst and tube with COMPLICATIONS: None known ESTIMATED BLOOD LOSS: minimal INTRAOPERATIVE FINDINGS: Pelvic adhesions dense and filmy. Left ovary with cyst densely adhesions to left pelvic side wall and omentum. PROCEDURE: Patient was taken to the OR and transferred to the OR bed. Venodynes were placed on the lower extremities and active prior to induction of anesthesia. Patient was placed in dorsal lithotomy in the [facility] stirrups. Patient was then prepped and drapped in the normal sterile fashion. Patient's bladder was e mptied and a sponge stick was placed in the vagina. A time out/patient safety declaration was performed. Attention was turned to patient's abdomen where local anesthetic was placed in the umbilical fold. A 5mm incision was placed in the umbilical fold. The optiview trocar and scope were advanced under direct visualization and gas was turned on. The trocar was removed and sleeve was left in place. The 5mm scope was replaced and placement was noted to be appropriate and correct. Patient was placed in trendelenburg. Attention was directed to the right abdominal side wall where a 5mm incision was made in the skin after placement of local. A 5mm trocar and sleeve were advanced under direct visualization. A 12mm skin incision was made in the skin after placement of local. A 12mm trocar and sleeve were then advanced under direct visualization. Patient was noted to have abundant significant filmy adhesions in the pelvis. Right ovary and tube were visualized and noted to be normal. The left ovary was visualized and noted to have about a 3cm cyst and normal ovarian tissue. The ovary and tube was adhered to the left pelvic side wall and omentum. The dense left pelvic side wall adhesion that was attached to the left colon was grasped with the ligasure, cauterized and sharply taken down in sequential bites. The integrity of the left colon was not disturbed. The overlying omentum was freed. The ovarian tissue was better visualized. Filmy adhesions were bluntly dissected down. It was noted the inferior portion of the ovary was densely adhered to the left omentum and left pelvic side wall. The inferior portion of the ovary was freed from the omentum with carefully in several bites of cautery and sharp dissection. After the ovary was completely mobilized from the ome ntum, conservative bites favoring the ovarian side as the infundibular pelvic ligament was obscured by dense adhesions. The ovary was freed from the pelvic side wall in several clamp, cautery and sharp dissection. Once the ovary was from the left pelvic side wall and was placed in the dependent pelvis. The endocatch bag was deployed and the left ovary tube and cyst was placed in the endocatch bag and the bag was removed. The left ovary tube and specimen were passed off. The surgical bed was hemostatic. The pelvis was copiously irrigated with normal saline. Hemostasis was excellent. The 12mm port site was closed with the endoclose device using an O vicryl suture. The patient was flattened out and the remaining left side wall trocar was removed under direct visualization. The umbilical port site was removed after the excess gas was removed. The 12mm port site subcutaneous adipose was reapproximated with 3-O vicryl and the skin was closed with 4-0 monocryl. The remainder of the laparascopic port sites were closed with 4-O monocryl suture. Sterri strips were placed and a band aid was placed over the umbilical site. Patient was cleansed. The sponge stick was removed from the patient's vagina. The patient was extubated and moved to her postop bed. Patient went to recovery in awake and stable condition. Sponge, lap and need counts were correct. Patient tolerated procedure well.
== END 2018-12-06 22:26 | disposition home or self-care (01) ==
LOC: ER 12:25 → OROUT 17:38 → UNDOADMIN 17:38 → EH 17:38 → OROUT 22:26 → UNDODISIN 22:26
PROVIDERS: ATTEND Obstetrics & Gynecology
PROC: 0UJ34ZZ Inspection of Ovary, Percutaneous Endoscopic Approach (ICD-10-PCS; principal; 2018-12-06 20:00)
DX: N83.202 Unspecified ovarian cyst, left side (principal); J45.909 Unspecified asthma, uncomplicated; E06.3 Autoimmune thyroiditis; M06.9 Rheumatoid arthritis, unspecified; I25.2 Old myocardial infarction; Z79.899 Other long term (current) drug therapy; Z87.891 Personal history of nicotine dependence; Z91.040 Latex allergy status; Z88.0 Allergy status to penicillin; Z88.8 Allergy status to other drugs, medicaments and biological substances
CPT/HCPCS: 36415; 76830; 80053; 81001; 840; 85025; 86850; 86900; 86901; 87210; 87491; 87591; 88305; 93976; 96374; 96375; 99285; J0131; J0330; J1170; J1885; J2250; J2405; J2550; J2704; J3010; J3490

== ENCOUNTER 2020-07-21 18:56 | Emergency (ER) | payer OTHER ==
--- NOTE | 2020-07-21 19:52 | RADIOLOGY REPORT (SQ) ---
EXAM DESCRIPTION: HUMERUS LEFT IMAGES COMPLETED DATE/TIME: 07/21/2020 7:45 pm REASON FOR STUDY: left arm injury COMPARISON: None. NUMBER OF VIEWS: Two views. TECHNIQUE: Two radiographic images were acquired of the left humerus to include elbow and shoulder i n at least one projection. LIMITATIONS: None. FINDINGS: MINERALIZATION: Normal. BONES: No acute fracture or dislocation. No worrisome bone lesions. SOFT TISSUES: No obvious swelling or foreign body. OTHER: No other significant finding. IMPRESSION: NEGATIVE STUDY OF THE LEFT HUMERUS. NO RADIOGRAPHIC EVIDENCE OF ACUTE INJURY. TECHNICAL DOCUMENTATION: JOB ID: [id number] [employer]- All Rights Reserved Reading location - IP/workstation name: [email or web address]
--- NOTE | 2020-07-21 20:06 | ER Document Report ---
ED Extremity Problem, Upper - General Chief Complaint: Arm Pain Stated Complaint: LEFT ARM INJURY/PAIN Time Seen by Provider: 07/21/20 19:21 Primary Care Provider: GISELLA MEADE FNP [Primary Care Provider] - Follow up as needed TRAVEL OUTSIDE OF THE [place] IN LAST 30 DAYS: Yes - HPI Notes: Patient is a 44-year-old female who presents with left arm pain that occurred earlier this afternoon. Patient states she was pulling a garden hose when she felt a sudden pop and sharp pain to her left upper arm. She denies any fall or other injury. Patient has not taken anything for pain. - Related Data Allergies/Adverse Reactions: adhesive tape [Adhesive Tape] Allergy (Severe, Verified 12/06/18 12:29) latex [Latex] Allergy (Verified 12/06/18 12:29) Anaphylaxis Penicillins Allergy (Verified 12/06/18 12:29) Anaphylaxis cephalexin [From Keflex] Adverse Reaction (Verified 12/06/18 12:29) morphine Adverse Reaction (Verified 12/06/18 12:29) Past Medical History - Social History Smoking Status: Never Smoker Family History: CAD - father and mother, DM - mother, Hyperlipidemia, Hypertension Patient has homicidal ideation: No - Past Medical History Cardiac Medical History: Reports: Hx Heart Attack Denies: Hx Coronary Artery Disease, Hx Hypertension Pulmonary Medical History: Reports: Hx Asthma - seasonal, Hx Pneumonia - Not hospitalized Denies: Hx Bronchitis, Hx COPD, Hx Tuberculosis Neurological Medical History: Denies: Hx Cerebrovascular Accident, Hx Seizures Endocrine Medical History: Reports: Hx Hypothyroidism - hashimotos Renal/ Medical History: Reports: Hx Kidney Stones - polycystic kidney. Denies: Hx Peritoneal Dialysis Musculoskeletal Medical History: Reports Hx Arthritis - RA Past Surgical History: Reports: Hx Hysterectomy, Hx Thyroid Surgery. Denies: Hx Pacemaker - Immunizations Hx Diphtheria, Pertussis, Tetanus Vaccination: Yes - 2013 Hx Pneumococcal Vaccination: 06/19/11 Review of Systems - Review of Systems Constitutional: No symptoms reported EENT: No symptoms reported Cardiovascular: No symptoms reported Respiratory: No symptoms reported Gastrointestinal: No symptoms reported Genitourinary: No symptoms reported Female Genitourinary: No symptoms reported Musculoskeletal: See HPI Skin: No symptoms reported Hematologic/Lymphatic: No symptoms reported Neurological/Psychological: No symptoms reported Physical Exam - Vital signs Vitals: Temp Pulse Resp BP Pulse Ox 99.4 F 122 H 18 149/94 H 98 07/21/20 19:02 07/21/20 19:02 07/21/20 19:02 07/21/20 19:02 07/21/20 19:02 - Notes Notes: PHYSICAL EXAMINATION: GENERAL: Well-appearing, well-nourished and in no acute distress. HEAD: Atraumatic, normocephalic. EYES: sclera anicteric, conjunctiva are normal. ENT: Moist mucous membranes. NECK: Normal range of motion LUNGS: Normal work of breathing HEART: 2+ radial pulses bilaterally EXTREMITIES: Tenderness to the left bicep with ecchymosis noted to the mid upper arm. No obvious "Salbador" deformity. Range of motion of the left arm is limited secondary to pain. No pitting or edema. No cyanosis. NEUROLOGICAL: No focal neurological deficits. Moves all extremities spontaneously and on command. PSYCH: Normal mood, normal affect. SKIN: Warm, Dry, normal turgor, no rashes or lesions noted. Course - Re-evaluation Re-evalutation: Patient is a 44-year-old female who presents with left arm pain that began earlier today when she was moving a garden hose and felt a sharp pain and sudden pop. Vital signs are normal. On exam, tenderness to the left bicep with ecchymosis noted to the mid upper arm. No obvious "Salbador" deformity. Range of motion of the left arm is limited secondary to pain. Left humerus x-ray is negative with no acute fractures. Based on patient's history and presentation, I am suspicious of a possible bicep tendon rupture. Patient placed in a shoulder immobilizer and instructed to follow-up with Ortho tomorrow. Patient advised to take Tylenol Motrin as needed for pain. Return precautions and follow-up instructions given. Patient understands and is in agreement with the plan. Patient will be discharged home. - Vital Signs Vital signs: Temp Pulse Resp BP Pulse Ox 99.4 F 122 H 18 149/94 H 98 07/21/20 19:02 07/21/20 19:02 07/21/20 19:02 07/21/20 19:02 07/21/20 19:02 Procedures - Immobilization Left Upper Arm Pre-Proc Neuro Vasc Exam: Normal Immobilizer type: Shoulder immobilizer Performed by: PCT Post-Proc Neuro Vasc Exam: Normal Discharge - Discharge Clinical Impression: Left upper arm pain Rupture of left biceps tendon Qualifiers: Encounter type: initial encounter Qualified Code(s): S46.212A - Strain of muscle, fascia and tendon of other parts of biceps, left arm, initial encounter Condition: Stable Disposition: HOME, SELF-CARE Additional Instructions: Follow-up with orthopedics tomorrow for possible bicep tendon rupture. Take ibuprofen Tylenol as needed for pain. Keep your arm in the shoulder immobilizer until cleared by Ortho. Referrals: GISELLA MEADE FNP [Primary Care Provider] - Follow up as needed NONI VEGA JR, DO [ACTIVE PROVISIONAL STAFF] - Follow up tomorrow
[2020-07-21 20:18] VITALS: BP 122/97
== END 2020-07-21 20:22 | disposition home or self-care (01) ==
LOC: ER 18:56
DX: S46.212A Strain of muscle, fascia and tendon of other parts of biceps, left arm, initial encounter (principal); X50.9XXA Other and unspecified overexertion or strenuous movements or postures, initial encounter; Y93.89 Activity, other specified; J45.909 Unspecified asthma, uncomplicated; Z91.048 Other nonmedicinal substance allergy status; Z88.0 Allergy status to penicillin; Z91.040 Latex allergy status; Z87.892 Personal history of anaphylaxis
CPT/HCPCS: 99283